=== PATIENT | male | born 1975 | race Caucasian/White ===

== ENCOUNTER 2020-05-20 12:33 | Emergency (ER) | payer MEDICAID ==
[~2020-05-20] VITALS: Ht 172.7 cm; Wt 93.4 kg
[2020-05-20 12:55] VITALS: BP 147/93; Ht 172.7 cm; Wt 93.4 kg
== END 2020-05-20 16:12 | disposition home or self-care (01) ==
LOC: ED 12:33
DX: S29.012A Strain of muscle and tendon of back wall of thorax, initial encounter (principal); I10 Essential (primary) hypertension; X58.XXXA Exposure to other specified factors, initial encounter; Y93.89 Activity, other specified; Y92.89 Other specified places as the place of occurrence of the external cause; Y99.8 Other external cause status